=== PATIENT | female | born 1955 | race Caucasian/White ===

== ENCOUNTER 2016-12-29 08:00 | Observation (INO) | payer BC ==
[~2016-12-29] VITALS: Ht 157.5 cm; Wt 78.0 kg
[2016-12-29] VITALS (15 sets, daily range): BP systolic 105–143; BP diastolic 58–74; PULSE 79–86; RESP 12–20; Ht 157.5 cm; Wt 78.0 kg
[~2016-12-29 08:00] MED LIST: DICY10CA60 PO; EPHEDrine SULFATE 50 MG/5 ML SYG ONE; ONDA4TAB14 PO
[2016-12-29] MEDS ORDERED: OMEP20CA16 PO (08:20)
[2016-12-29] MEDS ORDERED: ERGO500037 PO (08:20)
--- NOTE | 2016-12-29 08:38 | RADRPT ---
PROCEDURE: XR Chest. CLINICAL INDICATION: Preoperative. TECHNIQUE: Single frontal view. COMPARISON: None. FINDINGS: The lungs are clear. The heart size is normal. There is calcification in the aorta consistent with atherosclerosis. There is no pleural effusion. There is no pneumothorax. IMPRESSION: 1. Atherosclerosis. 2. Clear lungs. RPTAT: QQ .Rojelio Baumann MD, MD Date Time Electronically viewed and signed by .Rojelio Baumann MD, MD on 12/29/2016 08:38 .R/
[2016-12-29 09:04] LABS: BASOPHILS % 0.5 % (0.0-2.0); EOSINOPHILS # 0.2 10^3/ul (0.0-0.5); EOSINOPHILS % 4.3 % (0.0-7.0); HEMATOCRIT 38.4 % (37.0-47.0); HEMOGLOBIN 13.3 g/dl (12.0-16.0); LYMPHOCYTES # 1.2 10^3/ul (0.8-2.9); LYMPHOCYTES % 31.2 % (15.0-51.0); MEAN CORPUSCULAR HEMOGLOBIN 30.3 pg (29.0-33.0); MEAN CORPUSCULAR HGB CONC 34.6 g/dl (32.0-37.0); MEAN CORPUSCULAR VOLUME 87.5 fl (82.0-101.0); MEAN PLATELET VOLUME 10.3 fl (7.4-10.4); MONOCYTE # 0.4 10^3/ul (0.3-0.9); MONOCYTES % 9.5 % (0.0-11.0); NEUTROPHILS % 54.2 % (39.0-77.0); PLATELET COUNT 242 10^3/UL (140-415); RED BLOOD COUNT 4.39 10^6/ul (4.20-5.40); RED CELL DISTRIBUTION WIDTH 12.8 % (11.5-14.5); WHITE BLOOD COUNT 3.7 10^3/ul (4.8-10.8)
[2016-12-29 09:15] LABS: HOLD TRANSMISSIONS 1
[2016-12-29 09:23] LABS: INR 0.9; PARTIAL THROMBOPLASTIN TIME 32.7 Sec (25.0-35.0); PROTIME 12.1 Sec (12.2-14.2); PT RATIO 0.9
[2016-12-29 09:25] LABS: ALBUMIN 4.2 g/dl (3.3-4.9); ALBUMIN/GLOBULIN RATIO 1.31; BILIRUBIN,INDIRECT 0.6 mg/dl (0-1.1); BILIRUBIN,TOTAL 0.6 mg/dl (0.2-1.3); TOTAL PROTEIN 7.4 g/dl (6.1-8.1)
[2016-12-29 09:26] LABS: CALCIUM 9.4 mg/dl (8.4-10.2); CREATININE 0.54 mg/dl (0.44-1.00); POTASSIUM 4.1 mmol/L (3.5-5.1)
--- NOTE | 2016-12-29 09:29 | RADRPT ---
Vent Rate: 78 bpm RR Interval: 0 msec AR Interval: 146 msec QRS Duration: 92 msec QT Interval: 382 msec QTC Interval: 435 msec P-R-T [place]: 31 - 65 - 54 degrees Normal sinus rhythm Normal ECG Electronically Signed By: Gustavo Umanzor [id number]
[2016-12-29] MEDS ORDERED: ISOSULFAN BLUE 1% 5 ML INJ SC ONE (10:19)
[2016-12-29] MEDS ORDERED: ONDANSETRON 4 MG INJ ONE (10:25)
[2016-12-29] MEDS ORDERED: METOCLOPRAMIDE 10 MG INJ ONE (10:25)
[2016-12-29] MEDS ORDERED: MEPERIDINE 100 MG INJ ONE (10:25)
[2016-12-29] MEDS ORDERED: LIDOCAINE 2% (SDV) 5 ML INJ ONE (10:25)
[2016-12-29] MEDS ORDERED: PROPOFOL 20 ML ONE (10:25)
[2016-12-29] MEDS ORDERED: CEFAZOLIN 1 GM INJ ONE (10:25)
[2016-12-29] MEDS ORDERED: OXYCODONE/ACETAMINOPHEN (5/325) TAB PO PRN ×2 (11:30)
[2016-12-29] MEDS ORDERED: DIPHENHYDRAMINE 50 MG INJ IV PRN (11:30)
[2016-12-29] MEDS ORDERED: FENTAnyl 50 MCG/ML VIAL IV PRN ×2 (11:30)
[2016-12-29] MEDS ORDERED: MIDAZOLAM 1 MG/ML 2 ML INJ IV PRN (11:30)
[2016-12-29] MEDS ORDERED: LABETALOL HCL 20MG INJ IV PRN (11:30)
[2016-12-29] MEDS ORDERED: MEPERIDINE 25 MG INJ IV PRN (11:30)
[2016-12-29] MEDS ORDERED: METOCLOPRAMIDE 10 MG INJ IV PRN (11:30)
[2016-12-29] MEDS ORDERED: EPHEDrine SULFATE 50 MG/5 ML SYG IV PRN (11:30)
[2016-12-29] MEDS ORDERED: HYDROmorphONE (0.2 MG/ML) 10ML SYG IV PRN ×3 (11:30)
[2016-12-29] MEDS ORDERED: ONDANSETRON 4 MG INJ IV PRN ×2 (11:30→13:30)
[2016-12-29] MEDS ORDERED: hydrALAzine 20 MG INJ IV PRN (11:30)
--- NOTE | 2016-12-29 13:07 | SIPON ---
Date/Time of Note Date/Time of Note DATE: 12/29/16 TIME: 13:05 Operative Report Preoperative Diagnosis Invasive cancer right breast Postoperative Diagnosis Same Operation/Procedure Performed Right partial mastectomy and axillary dissection utilizing sentinel lymph node technique Surgeon see signature line magistrate assistant Dr Monique Anesthesia: general Estimated blood loss: 10 - 50 ml's Transfusion Required none Specimen Right breast specimen and axillary contents with sentinel lymph node Grafts/Implants none Complications none MACY ACHARYA MD Dec 29, 2016 13:07
[2016-12-29] MEDS ORDERED: morphine 2 MG INJ IV PRN (13:30)
[2016-12-29] MEDS ORDERED: ACETAMINOPHEN 1000MG/100ML IV 100 ML IVPB PRN (13:30)
[2016-12-29] MEDS: FENTAnyl 50 MCG/ML VIAL IV PRN ×2 (13:48→13:58)
--- NOTE | 2016-12-29 15:37 | HP ---
Date/Time of Note Date/Time of Note DATE: 12/29/16 TIME: 15:25 Assessment/Plan VTE Prophylaxis VTE Prophylaxis Intervention: SCD's Lines/Catheters IV Catheter Type (from Nrsg): Saline Lock Assessment/Plan Assessment/Plan -Invasive cancer right breast -Right partial mastectomy and axillary dissection utilizing sentinel lymph node technique - Admit to hospital - per sx - pain control - IVF - regular diet as tolerated - DVT prophylaxis - GI prophylaxis Dw Dr Hugo HPI/ROS Admit Date/Time Admit Date/Time Hx of Present Illness This is a 61-year-old female patient whose test result showed a relatively large, approximately 3 cm mass in her right breast. Her biopsy revealed an invasive cancer with HER-2 negative. She was not a candidate for neoadjuvant chemotherapy. Patient was counselled by her MD for possible breast surgery. Patient was admitted sp breast conservation surgery with right partial mastectomy and axillary dissection utilizing sentinel lymph node technique. Patient was admitted under Dr Hugo for post op evaluation and treatment. During assessment. patient denies any chest pain, shortness of breath, chills, headache, abdominal pain, nausea/vomitting ROS Respiratory: no complaints Cardiovascular: no complaints Gastrointestinal: no complaints Musculoskeletal: no complaints Skin: other (sp right breat sx) PMH/Family/Social Past Medical History - Gastritis Past Surgical History - Hysterectomy - Tubal Ligation Social History Smoking Status: Never smoker Exam/Review of Systems Vital Signs Vitals Vital Signs Date Time Temp Pulse Resp B/P Pulse Ox O2 Delivery O2 Flow Rate FiO2 12/29/16 14:51 97.7 86 18 133/69 98 Room Air 12/29/16 14:10 2.0 Exam Constitutional: alert, oriented, well developed Respiratory: diminished breath sounds, normal air movement Cardiovascular: nl pulses, regular rate and rhythm Gastrointestinal: non-tender, soft Musculoskeletal: nl extremities to inspection Extremities: normal pulses Neurological: nl mental status, nl speech Labs Result Diagram: 12/29/16 0845 12/29/16 0845 Medications Medications Current Medications Ondansetron HCl 4 mg 4 mg Q6H PRN IV NAUSEA AND/OR VOMITING; Start 12/29/16 at 13:30 Potassium Chloride/Dextrose/ Sod Cl (D5-1/2ns + KCl 20 Meq) 1,000 ml @ 125 mls/ hr Q8H IV ; Start 12/29/16 at 13:07 Morphine Sulfate 2 mg 2 mg Q1H PRN IV PAIN; Start 12/29/16 at 13:30 Acetaminophen (Ofirmev 1000mg/ 100ml Iv) 100 ml @ 400 mls/hr Q6H PRN IVPB PAIN ; Start 12/29/16 at 13:30 BEENA RICO Dec 29, 2016 15:35
[2016-12-29] MEDS ORDERED: PANTOPRAZOLE 40 MG INJ IV ONE (16:00)
[2016-12-29] MEDS: D5W-0.45 NACL + KCL 20 MEQ 1,000 ML IV SCH ×2 (16:15→21:07)
--- NOTE | 2016-12-29 17:49 | OPR ---
DATE OF OPERATION: 12/29/2016 PREOPERATIVE DIAGNOSIS: Invasive cancer, right breast. POSTOPERATIVE DIAGNOSIS: Invasive cancer, right breast. OPERATION PERFORMED: Right partial mastectomy with axillary dissection utilizing sentinel lymph nod e technique. ANESTHESIA: General. ANESTHESIOLOGIST: TAPAN Menendez MD SURGEON: Neeraj Greenberg MD WORD PROCESSOR OPERATOR: David Desai MD INDICATIONS FOR PROCEDURE: The patient is an unfortunate 61-year-old female who presented with a re latively large, approximately 3 cm right breast mass. Workup including biopsy revealed an invasive cancer which was HER-2 negative. She was deemed not a candidate for neoadjuvant chemotherapy. She was counseled as to the possible benefit of breast conservation surgery with right partial mastectom y and axillary dissection utilizing sentinel lymph node technique. She consented and was scheduled for surgery. DESCRIPTION OF PROCEDURE: The patient was brought to the operating theater, placed under general en dotracheal tube anesthesia. The right breast and axillary region was prepped and draped in usual st erile fashion. Approximately 4 mL of 1% Lymphazurin blue dye were then injected peritumorally. The breast was gently massaged for approximately 12 minutes. At this point, 4 cm incision was made in t he right axillary hairline. Subcutaneous tissue was dissected with cautery down through the clavipe ctoral fascia. A dye-stained lymphatic was traced to a sentinel node, but there were multiple enlar ged nodes associated with it. Based on this, Dr. Greenberg made the decision to proceed with axillary d issection. With blunt dissection along the chest wall, the long thoracic nerve was identified and ke pt out of harm's way. More superiorly, the axillary vein was identified and dissected from medial t o lateral. Thoracodorsal neurovascular bundle was identified throughout its course and kept out of harm's way. Level 1 and level 2 node bearing tissue was then meticulously resected using the LigaSu re device. Final connective tissue attachments to the latissimus dorsi muscle were then transected. The specimen was removed, it was sent for permanent pathologic analysis. The wound was irrigated. Minimal bleeding was controlled with cautery. A #10 flat Bhavesh-Hamilton drain was then brought thro ugh the right mid axillary line, cut to size, laid within the axilla. It was secured in place with 2-0 nylon suture in the standard fashion. The skin was then reapproximated with a 4-0 Vicryl suture in subcuticular fashion. Attention was then directed to performing the partial mastectomy. A long curvilinear incision was m preston in the upper outer quadrant of the breast directly overlying the palpable mass. Subcutaneous ti ssue was dissected with cautery. Skin hooks were utilized to elevate the skin edges and wide circum ferential dissection of the tissue associated with the mass then took place, taking great care to en sure adequate margin. Specimen was elevated, transected, oriented, and sent for intraoperative jeri s analysis of the margins performed by attending pathologist, Dr. Kvng Issa. Dr. Issa sta ro the margins were grossly clear. The specimen was then sent for permanent pathologic analysis. The wound was then irrigated. Minimal bleeding was controlled with cautery, and the skin was then r eapproximated with 4-0 Vicryl suture in subcuticular fashion. Dermabond was applied to both incision s. The patient tolerated the procedure well. The total blood loss was approximately 50 mL. There were no complications and the patient was transported in stable condition to the recovery room where circumferential compression dressing was applied. Dictated By: NEERAJ GREENBERG MD TL/JAVON Conf#: [id number] DID#: [id number] CC: DAVID DESAI MD;*EndCC*
[2016-12-30] MEDS: D5W-0.45 NACL + KCL 20 MEQ 1,000 ML IV SCH ×3 (00:14→08:20)
[2016-12-30 02:00] VITALS: BP 126/67; RESP 18
[2016-12-30 06:13] LABS: BASOPHILS % 0.2 % (0.0-2.0); EOSINOPHILS # 0.1 10^3/ul (0.0-0.5); EOSINOPHILS % 2.7 % (0.0-7.0); HEMATOCRIT 38.3 % (37.0-47.0); HEMOGLOBIN 12.6 g/dl (12.0-16.0); LYMPHOCYTES # 1.2 10^3/ul (0.8-2.9); LYMPHOCYTES % 25.3 % (15.0-51.0); MEAN CORPUSCULAR HEMOGLOBIN 29.9 pg (29.0-33.0); MEAN CORPUSCULAR HGB CONC 32.9 g/dl (32.0-37.0); MEAN CORPUSCULAR VOLUME 90.8 fl (82.0-101.0); MEAN PLATELET VOLUME 10.1 fl (7.4-10.4); MONOCYTE # 0.4 10^3/ul (0.3-0.9); MONOCYTES % 7.6 % (0.0-11.0); NEUTROPHIL # 3.1 10^3/ul (1.6-7.5); PLATELET COUNT 218 10^3/UL (140-415); RED BLOOD COUNT 4.22 10^6/ul (4.20-5.40); RED CELL DISTRIBUTION WIDTH 13.2 % (11.5-14.5); WHITE BLOOD COUNT 4.9 10^3/ul (4.8-10.8)
[2016-12-30 07:02] LABS: CALCIUM 8.5 mg/dl (8.4-10.2); CREATININE 0.59 mg/dl (0.44-1.00); POTASSIUM 4.6 mmol/L (3.5-5.1)
[2016-12-30 07:53] VITALS: BP 135/72; RESP 18
[2016-12-30 14:39] VITALS: BP 135/69; RESP 18
[2016-12-30] MEDS ORDERED: HYDR-906 PO (16:00)
--- NOTE | 2016-12-30 19:32 | DS ---
Date/Time of Note Date/Time of Note DATE: 12/30/16 TIME: 19:31 Discharge Summary Admission/Discharge Info Admit Date/Time Dec 29, 2016 at 13:08 Discharge Date/Time Dec 30, 2016 at 17:00 Patient Condition: Stable Hx of Present Illness The patient is an unfortunate 61-year-old female who presented with a relatively large, approximately 3 cm right breast mass. Workup including biopsy revealed an invasive cancer which was HER-2 negative. She was deemed not a candidate for neoadjuvant chemotherapy. She was counseled as to the possible benefit of breast conservation surgery with right partial mastectomy and axillary dissection utilizing sentinel lymph node technique. She consented and was scheduled for surgery. Hospital Course Invasive cancer right breast, s/p Right partial mastectomy and axillary dissection utilizing sentinel lymph node technique Home Meds Active Scripts Hydrocodone/Acetaminophen ([place] 5-325 Tablet) 1 Each Tablet, 1 EACH PO Q4 for PAIN, #30 TAB Prov:MONSTER LAWSON 12/30/16 Reported Medications Omeprazole* (Omeprazole*) 20 Mg Capsule.dr, 20 MG PO DAILY, #30 CAP 12/29/16 Ergocalciferol (Vitamin D2) (VITAMIN D2) 50,000 Unit Capsule, 38230 UNIT PO EVERY MONDAY, CAP 12/29/16 Discontinued Scripts Dicyclomine Hcl* (Bentyl*) 10 Mg Capsule, 10 MG PO TID for abdominal cramping, # 30 CAP Prov:NATHANIEL WU MD 02/10/16 Ondansetron (Ondansetron Odt) 4 Mg Tab.rapdis, 4 MG PO Q6H Y for NAUSEA AND/OR VOMITING, #30 TAB Prov:NATHANIEL WU MD 02/10/16 Follow-up Plan Follow-up with Dr. Greenberg in 5-7 days Primary Care Provider Care Physician No Primary Time spent on discharge: > 30 minutes Pending Labs Laboratory Tests Test 12/30/16 05:32 White Blood Count 4.910^3/ul (4.8-10.8) Red Blood Count 4.2210^6/ul (4.20-5.40) Hemoglobin 12.6g/dl (12.0-16.0) Hematocrit 38.3% (37.0-47.0) Mean Corpuscular Volume 90.8fl (82.0-101.0) Mean Corpuscular Hemoglobin 29.9pg (29.0-33.0) Mean Corpuscular Hemoglobin Concent 32.9g/dl (32.0-37.0) Red Cell Distribution Width 13.2% (11.5-14.5) Platelet Count 24938^3/UL (140-415) Mean Platelet Volume 10.1fl (7.4-10.4) Neutrophils % 64.0% (39.0-77.0) Lymphocytes % 25.3% (15.0-51.0) Monocytes % 7.6% (0.0-11.0) Eosinophils % 2.7% (0.0-7.0) Basophils % 0.2% (0.0-2.0) Nucleated Red Blood Cells % 0.0/100WBC (0.0-0.0) Neutrophils # 3.110^3/ul (1.6-7.5) Lymphocytes # 1.210^3/ul (0.8-2.9) Monocytes # 0.410^3/ul (0.3-0.9) Eosinophils # 0.110^3/ul (0.0-0.5) Basophils # 0.010^3/ul (0.0-0.1) Nucleated Red Blood Cells # 0.010^3/ul (0.0-0.0) Sodium Level 140mmol/L (135-144) Potassium Level 4.6mmol/L (3.5-5.1) Chloride Level 108mmol/L (97-110) Carbon Dioxide Level 26mmol/L (21-31) Anion Gap 11 (8-16) Blood Urea Nitrogen 12mg/dl (7-20) Creatinine 0.59mg/dl (0.44-1.00) Glucose Level 113mg/dl (70-220) Calcium Level 8.5mg/dl (8.4-10.2) MONSTER LAWSON Dec 30, 2016 19:32
--- NOTE | 2016-12-31 13:01 | PN ---
DATE: 12/30/2016 Post-right modified radical mastectomy. SUBJECTIVE: No complaint. OBJECTIVE: VITAL SIGNS: Stable, temperature maximum 99.3. Heart rate 80 and regular, respirations 18, blood pressure 135/72, saturation 95% room air. LABORATORY DATA: Today, WBC 4900, hemoglobin stable. Chemistry: Sodium, potassium, BUN, creatinine within normal limits. The patient had 2 Bhavesh- Hamilton drains in the past 24 hours since 6:00_morning. Number one has drained 125 mL, number two 60 mL. Since 7:00 a.m. until now which is 3:00 p.m., one of them has drained 60 mL , the other one has drained 15 mL of serosanguineous fluid. Dressing is intact. The patient has full range of motion of the right hand and elbow. ASSESSMENT AND PLAN: Status post right modified radical mastectomy. The patient is doing fine, stable. Tolerating diet, has been out of bed, walking around. Vital signs stable. The patient can be discharged home with 2 Bhavesh- Hamilton drains. The nurses are going to teach the patient the recurrence of action on Bhavesh-Hamilton and how to take care of the Bhavesh-Hamilton and how to record them. The patient to call Dr. Greenberg' office and make an appointment and go and see Dr. Greenberg next week. The patient understands the instructions. Dictated By: MORENA LEE/JAVON Conf#: [id number] DID#: [id number] MTDD
== END 2016-12-30 17:00 | disposition home or self-care (01) ==
LOC: SDS 08:00 → UNDOFXSDCACCOM 13:08 → SDS 13:08 → MS2 13:08 → UNDOFXSDCSVC 13:08 → MS2 13:08
PROVIDERS: ADMIT Surgery Surgical Oncology; ATTEND Surgery Surgical Oncology
DX: C50.911 Malignant neoplasm of unspecified site of right female breast (principal)
CPT/HCPCS: 19302; 71010; 80048; 80053; 85025; 85610; 85730; 88307; 88341; 88342; 93005; C9113; J0690; J2175; J2270; J2405; J2765; J3010; J3480; Z7500; Z7512; Z7610; G0378; Q9968

== ENCOUNTER 2017-03-23 12:29 | Day surgery (SDC) | END 2017-03-23 16:02 | disposition home or self-care (01) ==

== ENCOUNTER 2018-03-10 22:06 | Emergency (ER) | END 2018-03-11 03:00 | disposition home or self-care (01) ==

== ENCOUNTER 2018-08-14 06:07 | Day surgery (SDC) | payer BC ==
[~2018-08-14] VITALS: Ht 157.5 cm; Wt 85.2 kg
[~2018-08-14 06:07] MED LIST changes: +ALBU8.5H8 INH; +AZIT250T PO; -DICY10CA60 PO; -EPHEDrine SULFATE 50 MG/5 ML SYG ONE; +ERGO500013 PO; +GUAI-173 PO; +HYDR-4011 PO; +NAPR-985 PO; +OMEP20CA16 PO; -ONDA4TAB14 PO; +TRAM50TA2 PO
[2018-08-14 07:21] VITALS: Ht 157.5 cm; Wt 85.2 kg
[2018-08-14 07:24] VITALS: BP 137/69; PULSE 77; RESP 21
[2018-08-14] MEDS ORDERED: LETROZOLE (07:27)
[2018-08-14] MEDS ORDERED: SIMVASTATIN (07:27)
--- NOTE | 2018-08-14 07:47 | PREAC ---
Date/Time of Note Date/Time of Note DATE: 08/14/18 TIME: 07:46 Anesthesia Eval and Record Evaluation Time Pre-Procedure Interview DATE: 08/14/18 TIME: 07:46 Age 63 Sex female NPO: 8 hrs Preoperative diagnosis POSITIVE OCCULT BLOOD IN STOOL Planned procedure COLONOSCOPY WITH BIOPSIES Past Medical History Past Medical History: Includes (BREAST CANCER) Cardio: Dyslipidemia Surgery & Anesthesia Issues No known issue Meds Anticoagulation: No Beta Hakeem within 24 hr: No Reason Beta Hakeem not given: Pt. not on B-Hakeem Reported Medications [Letrozole] No Conflict Check 08/14/18 [Simvastatin] No Conflict Check 08/14/18 Discontinued Reported Medications Omeprazole* (Omeprazole*) 20 Mg Capsule.dr, 20 MG PO DAILY, #30 CAP 12/29/16 Ergocalciferol (Vitamin D2) (VITAMIN D2) 50,000 Unit Capsule, 60645 UNIT PO EVERY MONDAY, CAP 12/29/16 Discontinued Scripts Naproxen* (Naprosyn*) 500 Mg Tablet, 500 MG PO BID PRN for PAIN AND/OR INFLAMMATION, #30 TAB Prov:CRISTOBAL WILLETT PA-C 03/11/18 Tramadol HCl (Tramadol HCl) 50 Mg Tablet, 50 MG PO Q4 PRN for PAIN, #20 TAB Prov:CRISTOBAL WILLETT PA-C 03/11/18 Albuterol Sulfate* (Proair HFA*) 8.5 Gm Hfa.aer.ad, 2 PUFF INH Q4, #1 INHALER Prov:OLY CARDENAS 05/09/17 Guaifenesin* (Tussin*) 100 Mg/5 Ml Syrup, 200 MG PO Q6 PRN for COUGH for 3 Days, ML Prov:OLY CARDENAS 05/09/17 Azithromycin* (Zithromax*) 250 Mg Tablet, 250 MG PO .ZULY DIRECTED, #6 TAB TAKE 500 MG (2 TABS) THE FIRST DAY THEN 250 MG (1 TAB) DAYS 2-5 Prov:OLY CARDENAS 05/09/17 Hydrocodone/Acetaminophen ([place] 5-325 Tablet) 1 Each Tablet, 1 EACH PO Q4 for PAIN, #30 TAB Prov:MONSTER LAWSON 12/30/16 Meds reviewed: Yes Allergies Coded Allergies: No Known Allergy (Unverified , 08/14/18) Allergies Reviewed: Yes Labs/Studies Labs Reviewed: Reviewed by anesthesiologist test: N/A Pre-procedure Exam Last vitals Vital Signs Date Temp Pulse Resp B/P (MAP) Pulse Ox O2 O2 Flow FiO2 Time Delivery Rate 08/14/18 97.8 77 21 137/69 96 Room Air 07:24 (91) Airway: Adequate mouth opening, Adequate thyromental dist Mallampati: Mallampati II Teeth: Normal Lung: Normal Heart: Normal ASA Physical Status ASA physical status: 2 Emergency: None Planned Anesthetic General/MAC: MAC Planned Pain Management Parenteral pain med Pre-operative Attestations Prior to commencing anesthesia and surgery, the patient was re-evaluated, there was verification of: *The patient's identity *The results of appropriate recent lab work and preoperative vital signs *The above evaluation not changing prior to induction *Anesthetic plan, risk benefits, alternative and complications discussed with patient/family; questions answered; patient/family understands, accepts and wishes to proceed. Carlos Lipscomb M.D. August 14, 2018 07:47
[2018-08-14] MEDS ORDERED: LIDOCAINE 100 MG SYRINGE ONE (08:00)
[2018-08-14] MEDS ORDERED: PROPOFOL 40 ML ONE (08:00)
[2018-08-14 08:44] VITALS: BP 134/71; PULSE 77; RESP 22
--- NOTE | 2018-08-14 09:10 | PAC ---
Date/Time of Note Date/Time of Note DATE: 08/14/18 TIME: 09:10 Post-Anesthesia Notes Post-Anesthesia Note Last documented vital signs Vital Signs Date Temp Pulse Resp B/P (MAP) Pulse Ox O2 O2 Flow FiO2 Time Delivery Rate 08/14/18 77 22 134/71 97 Room Air 08:44 (92) 08/14/18 97.8 07:24 Activity: WNL Respiratory function: WNL Cardiovascular function: WNL Mental status: Baseline Pain reasonably controlled: Yes Hydration appropriate: Yes Nausea/Vomiting absent: Yes Carlos Lipscomb M.D. August 14, 2018 09:10
== END 2018-08-14 12:44 | disposition home or self-care (01) ==
LOC: GIL 06:07
PROVIDERS: ATTEND Internal Medicine Gastroenterology
DX: K64.8 Other hemorrhoids (principal)
CPT/HCPCS: 45378; J2001; Z7610